=== PATIENT | male | born 1980 | race Caucasian/White ===

== ENCOUNTER 2022-01-30 10:07 | Emergency (ER) | payer BC, SELFPAY ==
--- NOTE | ~2022-01-30 | XR_ITS ---
EXAMINATION: XR ankle RT min 3V DATE: 01/30/2022 10:46 INDICATION: Right ankle pain and swelling. TECHNIQUE: 4 views of right ankle were obtained. COMPARISON: None. FINDINGS: Bone alignment is normal. No fracture. 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 There are enthesophytes at the posterior and plantar aspects of calcaneal tuberosity. Ankle soft tissue swelling is noted. IMPRESSION: 1. No acute fracture. 2. Mild midfoot osteoarthritis. Reviewed, dictated and finalized at location A.
--- NOTE | 2022-01-30 10:25 | ED.LOWEXIN ---
HPI - Extremity Injury (Lower) General Chief Complaint: Extremity Injury, Lower Stated Complaint: rt ankle injury Time Seen by Provider: 01/30/22 10:25 Source: patient Mode of arrival: ambulatory Limitations: no limitations History of Present Illness HPI Narrative: Mr. Velasco is a 41-year-old male patient presenting to the clinic today with complaints of a right ankle injury that occurred yesterday. He reports he had stepped off a curb and rolled his ankle. Reports that he inverted his foot. Has swelling and pain to the lateral and posterior ankle. Most pain is when walking rating 8 out of 10. Denies any pain with resting. Related Data Home Medications Medication Instructions Recorded Confirmed apremilast [Otezla] 30 mg PO BID 01/30/22 01/30/22 bupropion HCl 150 mg PO DAILY 01/30/22 01/30/22 halobetasol propion-tazarotene 1 applic TOPICAL DIRECTED 01/30/22 01/30/22 [Duobrii] lisinopril 20 mg PO DAILY 01/30/22 01/30/22 Allergies Allergy/AdvReac Type Severity Reaction Status Date / Time No Known Allergies Allergy Verified 01/30/22 10:41 Review of Systems Review of Systems: Pertinent positives per HPI. Patient denies any fever, chills, rash, headache, visual changes, dizziness, cough, runny nose, sore throat, shortness of breath, chest pain, palpitations, nausea, vomiting, diarrhea, constipation, abdominal pain, or any urinary issues. PMFSH Comments At the time of my signature, I reviewed and agree with the nursing past medical, surgical, social, and family history. There is no relevant family history pertinent to the patient complaint. Exam Narrative: General: Well-developed, obese in no apparent distress Head: Normocephalic, atraumatic. Cardio: Regular rate and rhythm, s1 and s2 normal, no murmur appreciated. Resp: Clear to auscultation bilaterally, no rhonchi, rales, wheezing or rubs. Musculoskeletal: No deformity, swelling noted over the lateral aspect of the distal fibula, tenderness to palpation to the lateral ankle and posterior ankle, right foot non-tender to palpation, grossly normal range of motion, pain with dorsal flexion and plantar flexion against resistance, muscle strength strong and equal, peripheral pulse strong, no cyanosis, normal gait and station Course Course Emergency Course: Portions of this record may have been created with voice recognition software. Level of Care: Express Care Visit Vital Signs Vital signs: Vital Signs Temperature 36.2 C L 01/30/22 10:37 Pulse Rate 92 01/30/22 10:37 Respiratory Rate 18 01/30/22 10:37 Blood Pressure 127/91 H 01/30/22 10:37 Pulse Oximetry 98 01/30/22 10:37 Temperature 36.2 C L 01/30/22 10:37 Pulse Rate 92 01/30/22 10:37 Respiratory Rate 18 01/30/22 10:37 Blood Pressure 127/91 H 01/30/22 10:37 Pulse Oximetry 98 01/30/22 10:37 Vital signs reviewed MDM - Extremity Injury (Lower) MDM Narrative Medical decision making narrative: At the time of assessment patient is resting comfortably on the exam table. He has lateral ankle swelling with tenderness to palpation over the lateral ankle and posterior ankle. Pain with walking 8 out of 10. X-ray was completed and was negative for fracture or malalignment. I suspect ankle sprain. Petar wrap and crutches given to patient. Discussed supportive measures and patient voiced understanding Differential Diagnosis Differential diagnosis: Likely ankle sprain and strain, ankle fracture and other (Tendon injury) Imaging Data Radiologist's impression: Express [address] [id number] XRay ReportSigned Patient: Rajan Velasco WDOB: 1980MR#: [id number]/Sex: 41 / MAcct:[id number]: EXPTR ADM Date: 01/30/22Attending Dr: Ordering Physician: Uvaldo Faustin APRN Date of Service: 01/30/22 Procedure(s): XR ankle RT min 3V Accession Number(s): [id number] cc: Uvaldo Faustin APRN; Yee, Ben Steel MD~ EXAMINAT
[2022-01-30 10:37] VITALS: BP 127/91; PULSE 92; RESP 18; TEMP 36.2; O2SAT 98
== END 2022-01-30 11:13 | disposition home or self-care (01) ==
PROVIDERS: Emergency Provider Nurse Practitioner Family; PCP Family Medicine
DX: S93.401A Sprain of unspecified ligament of right ankle, initial encounter (principal); S96.911A Strain of unspecified muscle and tendon at ankle and foot level, right foot, initial encounter; X50.9XXA Other and unspecified overexertion or strenuous movements or postures, initial encounter; I10 Essential (primary) hypertension; F41.9 Anxiety disorder, unspecified; L40.9 Psoriasis, unspecified
CPT/HCPCS: 73610; 99203; G0463

== ENCOUNTER 2022-10-20 10:34 | Emergency (ER) | payer BC, SELFPAY ==
[2022-10-20 10:45] VITALS: BP 124/78; PULSE 97; RESP 18; TEMP 36.3; O2SAT 97
--- NOTE | 2022-10-20 10:52 | ED.URI ---
HPI - URI/Sore Throat General Chief Complaint: Upper Respiratory Infection Stated Complaint: Sore Throat,Congestion,Fatigue,Nausea Time Seen by Provider: 10/20/22 10:52 Source: patient, RN notes reviewed and old records reviewed Mode of arrival: ambulatory Limitations: no limitations History of Present Illness HPI Narrative: 41-year-old male presents to the [facility] with complaints sore throat, congestion fatigue and nausea. symptoms started yesterday. Had taken some NyQuil last night. Children were positive a week or so ago with strep. Painful swallowing. Denies fevers. Related Data Home Medications Medication Instructions Recorded Confirmed apremilast 30 mg tablet (Otezla) 30 mg PO BID 01/30/22 10/20/22 bupropion HCl 150 mg 24 hr tablet, 150 mg PO DAILY 01/30/22 10/20/22 extended release halobetasol propionate 0.01 1 applic topical DIRECTED 01/30/22 10/20/22 %-tazarotene 0.045 % lotion (Duobrii) lisinopril 20 mg tablet 20 mg PO DAILY 01/30/22 10/20/22 Allergies Allergy/AdvReac Type Severity Reaction Status Date / Time No Known Allergies Allergy Verified 10/20/22 10:59 Review of Systems Review of Systems: All systems reviewed & are unremarkable except as noted in HPI and below Constitutional: Constitutional: Reports as per HPI, Reports chills, Reports fatigue and Denies fever(s) Eyes: Eyes: Reports no additional eye complaints ENT: Reports as per HPI and Reports sore throat Cardiovascular: Cardiovascular: Reports no additional cardiovascular complaints, Denies chest pain and Denies dyspnea Respiratory: Respiratory: Reports no additional respiratory complaints, Denies chest congestion, Denies cough and Denies dyspnea Gastrointestinal: Gastrointestinal: Reports no additional gastrointestinal complaints, Denies abdominal pain, Denies nausea and Denies vomiting Musculoskeletal: Musculoskeletal: Reports no additional musculoskeletal complaints Integumentary/Breasts: Skin/Breast: Reports system reviewed and no additional complaints, except as docu Neurologic: Reports system reviewed and no additional complaints, except as documented Psychiatric: Psychiatric: Reports no additional psychiatric complaints Allergic/Immunologic: Allergic/Immunologic: Reports no additional allergic/immunologic complaints PMFSH Past Medical History Medical History (Updated 10/20/22 @ 11:14 by Tere Dougherty APRN) History of high blood pressure Social History Social History Living arrangements: with family Gender identity (if verbalized by the patient): Male Comments At the time of my signature, I reviewed and agree with the nursing past medical, surgical, social, and family history. There is no relevant family history pertinent to the patient complaint. Exam Const: General: cooperative, healthy appearing, comfortable, no acute distress, well developed, alert and well nourished Nutritional Appearance: well nourished and obese Orientation/consciousness: patient oriented x3 Limitations: no limitations HENMT: Head: normal to inspection Ears: hearing grossly normal bilaterally and external ears normal Face/Nose/Sinus: Normal external nose present, Normal nares present, Normal nasal mucous membranes and turbinates present and normal facial exam Face and sinus: normal facial exam Mouth: Yes Normal oral and palatal mucosa present, Yes lip normal and Yes moist mucous membranes Throat: uvula midline, abnormal tonsil bilateral erythema, exudates and hypertrophy 2+, posterior oropharynx abnormal erythema and postnasal drainage Eyes: General: appearance normal, both eyes and all related structures Alignment and Position: alignment normal Periorbital: periorbital findings normal Conjunctivae: conjunctivae normal Pupils: Equal, round and reactive pupils present EOM: EOMs intact bilaterally Neck: Neck: normal visual inspection, full ROM, no lymphadenop
== END 2022-10-20 11:20 | disposition home or self-care (01) ==
PROVIDERS: Emergency Provider Nurse Practitioner
DX: J02.0 Streptococcal pharyngitis (principal); I10 Essential (primary) hypertension
CPT/HCPCS: 87880; 99213; G0463

== ENCOUNTER 2023-01-14 09:59 | Emergency (ER) | payer BC, SELFPAY ==
[2023-01-14 10:13] VITALS: BP 145/88; PULSE 71; RESP 16; TEMP 36.1; O2SAT 99
--- NOTE | 2023-01-14 10:15 | ED.URI ---
HPI - URI/Sore Throat General Chief Complaint: Upper Respiratory Infection Stated Complaint: Sore Throat Time Seen by Provider: 01/14/23 10:15 Source: patient Mode of arrival: ambulatory Limitations: no limitations History of Present Illness HPI Narrative: Patient is a 42-year-old male that presents with sore throat, ear pain, fever, and fatigue since Sunday. States he was trying to tough it out but his sore throat has increased in pain. Has taken Tylenol with little to no relief. Denies any sick contacts Related Data Home Medications Medication Instructions Recorded Confirmed apremilast 30 mg tablet (Otezla) 30 mg PO BID 01/30/22 01/14/23 bupropion HCl 150 mg 24 hr tablet, 150 mg PO DAILY 01/30/22 01/14/23 extended release lisinopril 20 mg tablet 20 mg PO DAILY 01/30/22 01/14/23 Allergies Allergy/AdvReac Type Severity Reaction Status Date / Time No Known Allergies Allergy Verified 01/14/23 10:19 Review of Systems Review of Systems: All systems reviewed & are unremarkable except as noted in HPI and below Constitutional: Constitutional: Denies body ache(s), Reports fatigue, Reports fever(s), Denies headache(s), Denies malaise and Denies weakness Eyes: Eyes: Denies loss of vision ENT: Reports otalgia, Denies headache(s), Denies nasal congestion, Denies sinus pain and Reports sore throat Cardiovascular: Cardiovascular: Denies chest pain, Denies irregular heart rhythm and Denies dyspnea Respiratory: Respiratory: Denies cough and Denies dyspnea Gastrointestinal: Gastrointestinal: Denies abdominal pain, Denies melena, Denies hematochezia, Denies diarrhea, Denies nausea and Denies vomiting Musculoskeletal: Musculoskeletal: Denies back pain, Denies myalgias and Denies arthralgias Integumentary/Breasts: Skin/Breast: Denies pruritus and Denies rash Neurologic: Denies headache(s), Denies loss of vision and Denies weakness Psychiatric: Psychiatric: Reports no additional psychiatric complaints [facility] Past Medical History Medical History (Updated 01/14/23 @ 10:22 by Anabell Montana APRN) History of high blood pressure Social History Social History Living arrangements: with family Gender identity (if verbalized by the patient): Male Comments At time of signature, agree with nursing past medical, surgical, social and family history. There is no relevant family history pertinent to the presenting complaint. Exam Const: General: cooperative, healthy appearing, comfortable, no acute distress and well nourished Nutritional Appearance: well nourished Orientation/consciousness: patient oriented x3 Limitations: no limitations HENMT: Head: normal to inspection, normocephalic and atraumatic Ears: hearing grossly normal bilaterally, external ears normal and TM's normal bilaterally Face/Nose/Sinus: Normal external nose present, Normal nares present, Normal nasal mucous membranes and turbinates present, Normal septum present, normal facial exam, sinuses nontender and face symmetric Face and sinus: normal facial exam, sinuses nontender and face symmetric Mouth: Yes Normal oral and palatal mucosa present, Yes lip normal and Yes moist mucous membranes Teeth and gingiva: dentition normal Throat: uvula midline, abnormal tonsil bilateral erythema, exudates and hypertrophy 3+, posterior oropharynx abnormal edema, erythema and exudates and postnasal drainage Eyes: General: appearance normal, both eyes and all related structures Alignment and Position: alignment normal and position normal Periorbital: periorbital findings normal Eyelids: eyelids normal Pupils: Equal, round and reactive pupils present Neck: Neck: normal visual inspection, full ROM and supple Chest: Chest palpation & inspection: normal inspection of the chest and normal palpation of entire chest wall Resp: Effort & Inspection: normal respiratory effort and able to speak in complete sentences [facility]
== END 2023-01-14 10:26 | disposition home or self-care (01) ==
PROVIDERS: Emergency Provider Nurse Practitioner Family
DX: J02.0 Streptococcal pharyngitis (principal)
CPT/HCPCS: 87880; 99213; G0463

== ENCOUNTER 2023-02-26 08:20 | Emergency (ER) | payer BC, SELFPAY ==
--- NOTE | ~2023-02-26 | XR_ITS ---
EXAMINATION: XR ankle LT min 3V DATE: 02/26/2023 08:48 INDICATION: Left ankle pain and swelling. Injury. TECHNIQUE: 4 views of left ankle were obtained. COMPARISON: None. FINDINGS: There is heterotopic ossification distal to medial malleolus. Joint spaces are normal. Ther e are enthesophytes at the posterior and plantar aspects of calcaneal tuberosity. Ankle soft tissue s welling is noted. IMPRESSION: 1. Heterotopic ossification distal to medial malleolus, which may be acute fracture or chronic findin g. Reviewed, dictated and finalized at location A. IMPRESSION: 1. Heterotopic ossification distal to medial malleolus, which may be acute frac ture or chronic finding.
--- NOTE | 2023-02-26 08:25 | ED.LOWEXIN ---
HPI - Extremity Injury (Lower) General Chief Complaint: Extremity Injury, Lower Stated Complaint: foot injury Time Seen by Provider: 02/26/23 09:05 Source: patient and RN notes reviewed Mode of arrival: ambulatory Limitations: no limitations History of Present Illness HPI Narrative: 42-year-old male presents concern for left ankle injury. He reports yesterday [place] and [place] his ankle. He reports swelling, tenderness. Reports he cannot bear weight on, he has been using crutches complaint: ankle injury Related Data Home Medications Medication Instructions Recorded Confirmed apremilast 30 mg tablet (Otezla) 30 mg PO BID 01/30/22 02/26/23 bupropion HCl 150 mg 24 hr tablet, 150 mg PO DAILY 01/30/22 02/26/23 extended release lisinopril 20 mg tablet 20 mg PO DAILY 01/30/22 02/26/23 Allergies Allergy/AdvReac Type Severity Reaction Status Date / Time No Known Allergies Allergy Verified 02/26/23 08:38 Review of Systems Review of Systems: CONSTITUTIONAL: Denies malaise, chills, sweats, or fever. SKIN: Denies rash or itching, open skin, laceration, abrasion, redness, warmth MUSCULOSKELETAL: Reports left ankle pain and swelling NEUROLOGIC: Denies numbness, weakness All systems reviewed & are unremarkable except as noted in HPI and below PMFSH Past Medical History Medical History (Updated 02/26/23 @ 09:16 by Tere Brambila NP) History of high blood pressure Social History Social History Living arrangements: with family Gender identity (if verbalized by the patient): Male Comments At time of signature, agree with nursing past medical, surgical, social and family history. There is no relevant family history pertinent to the presenting complaint Exam Narrative: GENERAL: Well-appearing, well-nourished, and in no acute distress. HEAD: Normocephalic, atraumatic. EYES: PERRLA, conjunctivae clear NECK: Supple. CHEST: Speaks in full sentences. No respiratory distress. HEART: Regular rate and rhythm. Normal and equal peripheral pulses. EXTREMITIES: Left ankle, foot, digits have grossly normal strength and sensation, limited range of motion. Moderate circumferential ankle edema, no erythema, warmth, ecchymosis. 5/5 strength with digit flexion and extension. Normal sensation with sensitivity to light touch and pain. Medial ankle tenderness. No open wounds, no skin tenting, no devitalized tissue or atrophy, no trophic changes, no obvious deformity, alignment normal, nearby joints and structures intact. Distal pulses palpable and equal bilaterally, skin warm, dry, pink. Capillary refill less than 3 seconds. SKIN: Warm, dry, no rash. NEURO: Alert and oriented x3. PSYCH: Normal mood and affect Course Course Emergency Course: Patient is aware of diagnosis, understands and agrees to treatment plan. Anticipatory guidance given. Patient agrees to follow-up as directed and is aware of reasons to seek care at the emergency department. Portions of this record may have been created with voice recognition software Level of Care: Express Care Visit Vital Signs Vital signs: Reviewed. MDM - Extremity Injury (Lower) MDM Narrative Medical decision making narrative: Patients injury and pain is consistent with musculoskeletal etiology. No signs of neurological or vascular compromise on exam. Compartments and tissues are soft without signs of compartment syndrome. Pain is felt appropriate for further evaluation on an outpatient basis. Imaging Data My impression: Images reviewed, interpreted by radiologist, agree, see report. Radiologist's impression: EXAMINATION: XR ankle LT min 3V DATE: 02/26/2023 08:48 INDICATION: Left ankle pain and swelling. Injury. TECHNIQUE: 4 views of left ankle were obtained. COMPARISON: None. FINDINGS: There is heterotopic ossification distal to medial malleolus. Joint spaces are normal.
[2023-02-26 08:35] VITALS: BP 157/95; PULSE 87; RESP 18; TEMP 36.8; O2SAT 100
[2023-02-26 08:39] VITALS: BP 157/95; PULSE 87; RESP 18; TEMP 36.8; O2SAT 100
== END 2023-02-26 09:26 | disposition home or self-care (01) ==
PROVIDERS: Emergency Provider Nurse Practitioner
DX: S99.912A Unspecified injury of left ankle, initial encounter (principal); X50.9XXA Other and unspecified overexertion or strenuous movements or postures, initial encounter; I10 Essential (primary) hypertension
CPT/HCPCS: 73610; 99213; G0463

== ENCOUNTER → 2023-09-05 15:31 | Outpatient (CLI) | payer BC, SELFPAY ==
--- NOTE | ~2023-09-05 | XR_ITS ---
XR shoulder RT min 2V DATE: 09/05/2023 15:54 INDICATION: Right shoulder pain TECHNIQUE: 4 views COMPARISON: None FINDINGS: Normal alignment at the acromioclavicular and glenohumeral joints. No fracture or dislocati on, periosteal reaction or bone destruction or abnormal right shoulder soft tissue calcification. IMPRESSION: Negative Reviewed, dictated and finalized at location B. 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
== END ==
PROVIDERS: PCP Nurse Practitioner Family; Visit Provider Nurse Practitioner Family
DX: M25.511 Pain in right shoulder (principal)
CPT/HCPCS: 73030